=== PATIENT | female | born 1980 | race Caucasian/White ===

== ENCOUNTER 2023-09-11 05:59 | Day surgery (SDC) | payer OTHER ==
[~2023-09-11] VITALS: Ht 157.5 cm; Wt 74.1 kg
[~2023-09-11 05:59] MED LIST: CLARITIN10 M2 PO; FLUOXETINE HCL20 MG PO; NAPROSYN500 MG PO; OSTERA TABLET1 EACH PO; SINGULAIR10 MG PO; SPRINTEC1 EACH PO; SYNTHROID50 MCG PO; TURMERIC500 M3 PO; ZINC50 MG PO
[2023-09-11 06:17] VITALS: BP 135/83
[2023-09-11] MEDS ORDERED: RESTASIS1 DROP OD (06:19)
[2023-09-11] MEDS ORDERED: SUMATRIPTAN SUC50 MG PO (06:19)
[2023-09-11] MEDS ORDERED: MONO-LINYAH1 EACH PO (06:19)
[2023-09-11] MEDS ORDERED: ALPRAZOLAM1 MG PO (06:20)
[2023-09-11] MEDS ORDERED: IRON18 MG PO (06:23)
[2023-09-11] MEDS ORDERED: VITAMIN C100 MG PO (06:23)
[2023-09-11 07:28] LABS: BASOPHILS 0.6 % (0-2); EOSINOPHILS 1.5 % (0-6); HEMATOCRIT 34.5 % (35.0-50.0); HEMOGLOBIN 11.3 g/dL (12.0-18.0); LYMPHOCYTES 34.5 % (24-44); MCH 26.8 (27-36); MCHC 32.8 g/dl (30-36); MCV 81.9 fl (81-99); MONOCYTES 7.3 % (0-12); NEUTROPHILS 56.1 % (39-80); PLATELET COUNT 221 K/uL (140-440); RBC 4.21 M/ul (4.3-5.7); RDW 21.5 (10.5-15.0)
--- NOTE | 2023-09-11 07:52 | NUR ---
09/11/23 0752 DanielRadha PATIENT ARRIVES IN PACU WITH LINUS NESBITT, PERFORMING CHIN LIFT. JAW THRUST IS CONTINUED BY KENNY HENSLEY. PATIENT'S HEAD IS POSITIONED TO THE RIGHT AND HER AIRWAY IS ADEQUATE FOR EXCHANGE. PATIENT IS NOT RESPONSIVE. ORAL AIRWAY REMAINS IN PLACE.
--- NOTE | 2023-09-11 07:53 | NUR ---
MS REAL. PT GONE TO PROCEDURE. PROVIDED PRAYER.
[2023-09-11 08:11] VITALS: BP 107/64
--- NOTE | 2023-09-11 08:13 | NUR ---
LE 0810: PT IS BACK TO DS FROM PACU. SHE IS AWAKE AND BACK TO HER BASELINE. SO IS AT THE BEDSIDE. CALL LIGHT WITHIN REACH. WATER ON BEDSIDE TABLE. DC CRITERIA IS REVIEWED WITH PT AND SO. PT INDICATES THAT SHE FEELS LIKE SHE NEEDS TO VOID, SHE WOULD LIKE TO GET UP AND TRY.
--- NOTE | 2023-09-11 08:24 | NUR ---
LE 0815: PT IS HELPED UP OOB WITH STANDBY ASSIST. SHE DENIES NAUSEA OR DIZZINESS. SHE IS ABLE TO AMBULATE INDEPENDENTLY TO THE BATHROOM. WHERE SHE IS ABLE TO VOID 150MLS OF BLOOD TINGED URINE. LE 0820: PT IS HELPED BACK INTO BED. SHE IS TOLERATING SIPS OF WATER. SHE WOULD LIKE TO WAIT ON A SNACK.
[2023-09-11 09:14] VITALS: BP 128/79
--- NOTE | 2023-09-11 09:15 | NUR ---
LE 0910: PT IS DENYING PAIN. SHE IS TOLERATING WATER. SHE IS AGREEABLE TO APPLE SAUCE. LE 0915: PT AND SO ARE GIVEN VERBAL AND WRITTEN DC INSTRUCTIONS. THEY BOTH VERBALIZE UNDERSTANDING. NO QUESTIONS AT THIS TIME. PT TOLERATES APPLE SAUCE. PT INDICATES THAT SHE WOULD LIKE TO GO HOME. SHE IS EDUCATED ON HOW TO BEST DRESS HERSELF AND TO OPEN HER CURTAIN WHEN READY.
--- NOTE | 2023-09-11 09:37 | NUR ---
LE 0925: PT IS TAKEN TO PERSONAL VEHICLE VIA . SHE IS ABLE TO TRANSFER HERSELF FROM WHEELCHAIR TO TRUCK.
--- NOTE | 2023-09-11 15:48 | OR ---
[facility] [address] [place], [place] [address] Signed DATE OF OPERATION: 09/11/2023 SURGEON: Tressa Chester MD PREOPERATIVE DIAGNOSIS: Menorrhagia with regular cycle. POSTOPERATIVE DIAGNOSIS: Menorrhagia with regular cycle, submucous fibroid, single endometrial polyp. PROCEDURE: Hysteroscopy resection of polyp. ANESTHESIA: General LMA. ESTIMATED BLOOD LOSS: Minimal. DRAINS: None. INDICATIONS AND FINDINGS: The patient is a 43-year-old female, who has been having issues with menorrhagia with very heavy bleeding, which is not improved with control pills. At the time of surgery, her uterus sounded to 11 cm. There was a submucous fibroid at the fundus, which was not able to be resected. She had a single polyp in the lower segment. DESCRIPTION OF PROCEDURE: The patient was prepped and draped in the dorsal lithotomy position. A weighted speculum was placed. The anterior lip of the cervix was visualized and grasped with a single-tooth tenaculum. The uterus was sounded to 11 cm. The endocervical canal was then dilated to a #8 dilator. The MyoSure device was then introduced and the cavity evaluated. The MyoSure Lite was then introduced and the polyp was removed easily. D and C was also done to assure no remaining tissue. The fibroid was noted, but could not be resected due to its location. The procedure was then terminated with removal of the instruments from the vagina. There was no evidence of ongoing bleeding from the tenaculum site. The patient was taken to the recovery room in good condition. All sponge and needle counts were correct. Electronically Signed By: TRESSA CHESTER MD 09/11/23 1548 PATIENT NAME: LURDES DA SILVA OPERATIVE REPORT DATE OF : 76 REPORT #: [id number] PHYSICIAN: TRESSA CHESTER MD PCP: LEROY CARBAJAL MD REPORT IS CONFIDENTIAL AND NOT TO BE RELEASED WITHOUT AUTHORIZATION [address] [address] Signed Tressa Chester MD PJW/MODL /[id number] Copies: ~ Electronically Signed By: TRESSA CHESTER MD 09/11/23 1548 PATIENT NAME: LURDES DA SILVA OPERATIVE REPORT DATE OF : 76 REPORT #: [id number] PHYSICIAN: TRESSA CHESTER MD PCP: LEROY CARBAJAL MD REPORT IS CONFIDENTIAL AND NOT TO BE RELEASED WITHOUT AUTHORIZATION
--- NOTE | 2023-09-14 11:46 | PATH ---
[facility] [address] [place], [place] [address] Signed SPECIMEN(S): A ENDOMETRIAL CURETTINGS SPECIMEN SOURCE: A. ENDOMETRIAL CURETTINGS CLINICAL HISTORY: Menorrhagia. FINAL PATHOLOGIC DIAGNOSIS: Endometrial curettings: - Secretory endometrium, negative for hyperplasia or atypia. - Benign endometrial polyp. - Negative for hyperplasia or atypia. JVR:cecily MICROSCOPIC EXAMINATION: Histologic sections of all submitted blocks are examined by light microscopy. These findings, together with the gross examination, support the pathologic diagnosis. GROSS DESCRIPTION: The specimen, labeled and designated "Swilling, endometrial curettings," is received in formalin and consists of multiple fragments of red-brown soft tissue (2.7 x 2.0 x 0.4 cm in aggregate). The specimen is submitted entirely in cassette (A1). VB (under the direct supervision of a pathologist) The Gross Description was prepared using a voice recognition system. The report was reviewed for accuracy; however, sound-alike word errors, addition and/or deletions may occur. If there is any question about this report, please contact Client Services. PERFORMING LABORATORY: Technical component was performed by [facility], [address] [place] [id number] (CLIA# [id number]). Professional interpretation was performed by [facility], [address] [place] [phone] (CLIA#: [id number]). Diagnostician: Sam Valdes MD Pathologist Electronically Signed 09/14/2023 PATIENT NAME: LURDES DA SILVA PATHOLOGY DATE OF : [birth year] REPORT #: [id number] PHYSICIAN: [facility] PCP: LEROY CARBAJAL MD REPORT IS CONFIDENTIAL AND NOT TO BE RELEASED WITHOUT AUTHORIZATION [address] [address] Signed Copies: ~ PATIENT NAME: LURDES DA SILVA PATHOLOGY DATE OF : [birth year] REPORT #: [id number] PHYSICIAN: [facility] PCP: LEROY CARBAJAL MD REPORT IS CONFIDENTIAL AND NOT TO BE RELEASED WITHOUT AUTHORIZATION
== END 2023-09-11 09:25 | disposition home or self-care (01) ==
LOC: OPS 05:59 → DS 05:59 → OPS 07:15 → DS 07:15 → OPS 09:25
PROVIDERS: ATTEND Obstetrics & Gynecology
PROC: 0UB98ZZ Excision of Uterus, Via Natural or Artificial Opening Endoscopic (ICD-10-PCS; principal; 2023-09-11 07:15)
DX: N84.0 Polyp of corpus uteri (principal); N92.0 Excessive and frequent menstruation with regular cycle; D25.0 Submucous leiomyoma of uterus; E03.9 Hypothyroidism, unspecified; Z79.899 Other long term (current) drug therapy
CPT/HCPCS: 00952; 36415; 84703; 85025; J1100; J1885; J2250; J2405; J2704; J2765; J3010; J7121

== ENCOUNTER 2023-10-11 05:52 | Day surgery (SDC) | payer OTHER ==
[2023-09-25 15:32] VITALS: BP 145/88
[~2023-10-11] VITALS: Ht 157.5 cm; Wt 77.3 kg
[~2023-10-11 05:52] MED LIST changes: +ALPRAZOLAM1 MG PO; +FLONASE ALLERG9.9 ML NAS; +GINGER500 MG PO; +IRON18 MG PO; +IRON325 M1 PO; +LACTATED RINGER'S 1,000 ML IV SCH; +MONO-LINYAH1 EACH PO; +PHOS MISC; +RESTASIS1 DROP OD; +SUMATRIPTAN SUC50 MG PO; +VITAMIN B-150 MG PO; +VITAMIN C100 MG PO; +VITAMIN D3250 MCG PO; +[UNRECOGNIZED DRUG - OTHER] MISC
[2023-10-11 06:13] VITALS: BP 147/91
[2023-10-11] MEDS ORDERED: fentaNYL citrate 100 MCG/2 ML VIAL ONE (06:59)
[2023-10-11] MEDS ORDERED: KETAMINE in NS 50 MG/5 ML SYR ONE (06:59)
[2023-10-11] MEDS ORDERED: ROCURONIUM BROMIDE 50 MG/5 ML SYR ONE ×2 (07:00→08:10)
[2023-10-11] MEDS ORDERED: ACETAMINOPHEN 1,000 MG/100 ML VIAL ONE (07:00)
[2023-10-11] MEDS ORDERED: CEFAZOLIN SODIUM 2 GM/20 ML SYR IV SCH (07:00)
[2023-10-11] MEDS ORDERED: FAMOTIDINE 20 MG/ 2 ML VIAL IV SCH (07:00)
[2023-10-11] MEDS ORDERED: SODIUM CHLORIDE 0.9% 40 ML IV ONE ×2 (07:00→08:11)
[2023-10-11] MEDS ORDERED: LIDOCAINE HCL 2% 5 ML SDV ONE ×2 (07:00→08:11)
[2023-10-11] MEDS ORDERED: KETOROLAC TROMETHAMINE 30 MG/ML VIAL ONE (07:00)
[2023-10-11] MEDS ORDERED: LIDOCAINE HCL 1% 5 ML SDV INJ ONE (07:00)
[2023-10-11] MEDS ORDERED: propofoL 200 MG/20 ML VIAL ONE (07:00)
[2023-10-11] MEDS ORDERED: METOCLOPRAMIDE HCL 10 MG/2 ML SDV IV SCH (07:00)
[2023-10-11] MEDS ORDERED: dexmedeTOMIDine HCl 200 MCG/2 ML VIAL ONE (07:00)
[2023-10-11] MEDS ORDERED: IBLOOD GLUCOSE TEST STRIP 1 EA TEST VI PRN ×2 (07:00→08:45)
[2023-10-11] MEDS ORDERED: MAGNESIUM SULFATE 1 GM/2 ML VIAL ONE ×2 (07:00→08:11)
[2023-10-11] MEDS ORDERED: HEParin SOD (PORCINE) 5,000 UNIT/0.5 ML SYR SUB-Q SCH ×2 (07:00→21:00)
[2023-10-11] MEDS ORDERED: ondansetron HCL 4 MG/2 ML VIAL ONE (07:00)
[2023-10-11] MEDS ORDERED: DEXAMETHASONE SOD PHOS 4 MG/ML VIAL ONE (07:00)
[2023-10-11] MEDS ORDERED: droPERidol 5 MG/2 ML VIAL IV PRN (08:45)
[2023-10-11] MEDS ORDERED: ondansetron HCL 4 MG/2 ML VIAL IV PRN ×2 (08:45→09:15)
[2023-10-11] MEDS ORDERED: NALOXONE HCL 0.4 MG SYR IV PRN (08:45)
[2023-10-11] MEDS ORDERED: fentaNYL citrate 100 MCG/2 ML VIAL IV PRN (08:45)
[2023-10-11] MEDS ORDERED: HYDROmorphone HCL 1 MG/ML SYR IV PRN (08:45)
[2023-10-11] MEDS ORDERED: FLUORESCEIN SODIUM 500 MG/5 ML ML ONE (08:53)
[2023-10-11] MEDS ORDERED: SUGAMMADEX SODIUM 200 MG/2 ML ML ONE (09:00)
[2023-10-11] MEDS ORDERED: METOCLOPRAMIDE HCL 10 MG/2 ML SDV IV PRN (09:15)
[2023-10-11] MEDS ORDERED: LIDOCAINE 2% VISCOUS 6 ML SYR TOP ONE (09:15)
[2023-10-11] MEDS ORDERED: MAGNESIUM HYDROXIDE/AL HYDROX 30 ML CUP PO PRN (09:15)
[2023-10-11] MEDS ORDERED: ondansetron HCL 4 MG TAB PO PRN (09:15)
[2023-10-11] MEDS ORDERED: PROCHLORPERAZINE EDISYLATE 10 MG/2 ML VIAL IV PRN (09:15)
[2023-10-11] MEDS ORDERED: LACTATED RINGER'S 1,000 ML IV SCH (09:15)
[2023-10-11] MEDS ORDERED: FAMOTIDINE 20 MG TAB PO PRN (09:15)
[2023-10-11 10:16] VITALS: BP 129/78
[2023-10-11] MEDS ORDERED: OXYCODONE HCL 5 MG TAB PO PRN (10:45)
[2023-10-11 11:09] VITALS: BP 138/88
[2023-10-11] MEDS ORDERED: ACETAMINOPHEN 500 MG TAB PO SCH (14:00)
[2023-10-11] MEDS ORDERED: IBUPROFEN 800 MG TAB PO SCH (18:00)
--- NOTE | 2023-10-13 13:49 | PATH ---
[facility] [address] [place], [place] [address] Signed SPECIMEN(S): A UTERUS, CERVIX, BILATERAL TUBES SPECIMEN(S): B RIGHT PELVIC SIDEWALL ENDOMETRIOSIS SPECIMEN(S): C CUL-DE-SAC ENDOMETRIOSIS SPECIMEN SOURCE: A. UTERUS, CERVIX, BILATERAL TUBES B. RIGHT PELVIC SIDEWALL ENDOMETRIOSIS C. CUL-DE-SAC ENDOMETRIOSIS CLINICAL HISTORY: Menorrhagia with regular cycle. Submucosal fibroids. FINAL PATHOLOGIC DIAGNOSIS: A. Uterus, cervix, bilateral tubes: - Atrophic endometrium, negative for hyperplasia or atypia. - Benign myometrial leiomyomas. - Benign endo- and ectocervix. - Benign bilateral oviducts. B. Right pelvic sidewall, endometriosis: - Benign soft tissue with features consistent with endometriosis. C. Cul-de-sac, endometriosis: - Endometriosis, benign. JVR:llc MICROSCOPIC EXAMINATION: Histologic sections of all submitted blocks are examined by light microscopy. These findings, together with the gross examination, support the pathologic diagnosis. GROSS DESCRIPTION: A. The specimen, labeled and designated "[place]imcoing, uterus, cervix, bilateral fallopian tubes," is received in formalin and consists of unoriented uterus and cervix with and undesignated fallopian tubes. The uterus cannot be grossly oriented. The uterus measures 5.0 cm from cornu to cornu, 5.0 cm anterior to posterior and 6.8 cm from cervix to fundus. The serosal surface is pink-jameson, smooth. The uterus weighs 109 grams. The ectocervix is pink-jameson, smooth and measures 3.5 x 3.5 cm. Sectioning through the cervix reveals pink-jameson homogenous tissue. Endometrial cavity is disfigured with subendometrial nodule and measures 2.7 x 0.7 cm. It is lined with pink-jameson, smooth endometrium. Sectioning through myometrium reveals two PATIENT NAME: LURDES DA SILVA PATHOLOGY DATE OF : 76 REPORT #: [id number] PHYSICIAN: [facility] PCP: LEROY CARBAJAL MD REPORT IS CONFIDENTIAL AND NOT TO BE RELEASED WITHOUT AUTHORIZATION [facility] [address] [place], [place] [address] Signed white, firm, well-defined nodules that measure 2.0 and 2.5 cm in greatest dimension. Both nodules are subendometrial. Sectioning through the nodule reveals a white, firm, whorled surface with signs of hemorrhage. The myometrium measures 2.0 cm in thickness. The endometrium measures less than 0.1 cm in thickness. Both fallopian tubes show fimbria and violaceous and smooth serosa. The first fallopian tube measures 2.5 cm in length and 0.6 cm in diameter. The second fallopian tube measures 3.8 cm in length and 0.6 cm in diameter. Sectioning through both fallopian tubes is grossly unremarkable. Cassette Summary: (A1) cervix, desk representative sections (A2) endomyometrium, desk representative sections (A3-A4) two subendometrial nodules, desk representative sections (A5) first fallopian tube, desk representative sections (A6) second fallopian tube, desk representative sections B. The specimen, labeled and designated "Pipe, right pelvic sidewall endometriosis," is received in formalin and consists of pink-jameson, soft, focally congested tissue fragment that measures 0.8 x 0.7 x 0.3 cm. Specimen is bisected and entirely submitted in (B1). C. The specimen, labeled and designated "Swilling, cul-de-sac endometriosis," is received in formalin and consists of pink-jameson, focally congested, soft tissue fragment that measures 0.6 x 0.5 x 0.2 cm. Specimen is bisected and entirely submitted in (C1). JS (under the direct supervision of a pathologist) The Gross Description was prepared using a voice recognition system. The report was reviewed for accuracy; however, sound-alike word errors, addition and/or deletions may occur. If there is any question about this report, please contact Client Services. PERFORMING LABORATORY: Technical component was performed by [facility], [address] [place] [id number] (CLIA# [id number]). Professional interpretation was performed by [facility], [address] [place] [id number] (CLIA#: [id number]). Diagnostician: Sam Valdes MD Pathologist Electronically Signed 10/13/2023 PATIENT NAME: LURDES DA SILVA PATHOLOGY DATE OF : [birth year] REPORT #: [id number] PHYSICIAN: [facility] PCP: LEROY CARBAJAL MD REPORT IS CONFIDENTIAL AND NOT TO BE RELEASED WITHOUT AUTHORIZATION [facility] [address] [place] [address] Signed Copies: ~ PATIENT NAME: NIMCOJEANNIELURDES PATHOLOGY DATE OF : 76 REPORT #: [id number] PHYSICIAN: [facility] PCP: LEROY CARBAJAL MD REPORT IS CONFIDENTIAL AND NOT TO BE RELEASED WITHOUT AUTHORIZATION
--- NOTE | 2023-10-14 14:31 | OR ---
[facility] [address] [place], [place] [address] Signed DATE OF OPERATION: 10/11/2023 SURGEON: Tressa Chester MD PERSONAL LINES ADVISOR: LATOYA Salazar DO PREOPERATIVE DIAGNOSES: Menorrhagia, submucosal fibroids. POSTOPERATIVE DIAGNOSES: Menorrhagia, submucosal fibroids with pelvic endometriosis. PROCEDURES: Total laparoscopic hysterectomy, bilateral salpingectomy, excision and fulguration of endometriosis. ANESTHESIA: General ET. ESTIMATED BLOOD LOSS: 25 mL. DRAINS: Lucas catheter. INDICATIONS AND FINDINGS: The patient is a 43-year-old female who has been having heavier periods despite use of oral contraceptives. Hysteroscopy confirmed a submucosal fibroid. She desired definitive treatment. At the time of surgery, exam under anesthesia revealed a top-normal size uterus with a small fibroid posteriorly at the time of surgery itself. These findings were confirmed and endometriosis was seen in posterior cul de sac, the left anterior cul de sac and the right posterior ovarian fossa. There was a small area over the sigmoid which was superficial PROCEDURE IN DETAIL: The patient was prepped and draped in the dorsal lithotomy position. A weighted speculum was placed. The anterior lip of the cervix was visualized and grasped with a single-tooth tenaculum. The cavity was sounded to 12 cm. The endocervical canal was then dilated slightly and the VCare cannula placed and the balloon inflated at the Electronically Signed By: TRESSA CHESTER MD 10/14/23 1431 PATIENT NAME: LURDES DA SILVA OPERATIVE REPORT DATE OF : 76 REPORT #: [id number] PHYSICIAN: TRESSA CHESTER MD PCP: LEROY CARBAJAL MD REPORT IS CONFIDENTIAL AND NOT TO BE RELEASED WITHOUT AUTHORIZATION [facility] [address] [place], [place] [address] Signed fundus. The tenaculum and speculum removed and the cup was fitted over the cervix and a locking cap fitted into place. Attention was then directed above. The infraumbilical area was injected with 0.5% Marcaine plain. An incision was made with a knife, and each layer was serially elevated and incised until the fascia was opened and identified. Stay sutures of 0 Vicryl were placed. The peritoneum was opened bluntly and the Suni cannula placed and the balloon inflated. Placement of the scope confirmed proper positioning. CO2 was then introduced into the abdomen. When the abdomen was appropriately distended, the secondary ports were placed. These were placed laterally and slightly below the level of the umbilicus. Each of these areas was transilluminated, injected with the Marcaine, incision made with a knife and the trocars placed under direct vision. Left-sided port was a 5 mm port. The right-sided was the Veress needle with the expanding port. Following this, the Ligasure [place] device was then used to excise the tubes. The mesosalpinx was serially coagulated and divided and the tube divided at the cornu and the specimen retrieved. This was done bilaterally. The utero-ovarian pedicles were then serially coagulated and divided as was the round ligament on the patient's left side. This allowed for development of the bladder flap anteriorly as well as taking the peritoneum down posteriorly. The uterine vessels were skeletonized and were coagulated multiple times and divided. Further dissection was done both posteriorly and anteriorly. Attention was then directed to the patient's right side. The utero-ovarian ligament was coagulated and divided as was the round ligament. The peritoneum incised anteriorly completing the bladder flap. Peritoneum was taken down posteriorly as well. Uterine vessels were coagulated and divided multiple times. Further dissection was done both posteriorly and anteriorly and at this point, it was felt that the specimen could be removed. The Sonicision device was used to separate the specimen from the vaginal cuff. This was begun posteriorly at the right uterosacral ligament and carried around anteriorly and then begun again posteriorly and wrapped around to complete the removal. The specimen was retrieved vaginally. The vaginal canal was packed with a glove with a wet lap. The pneumoperitoneum was then reaccumulated and the cuff evaluated. There was some bleeding on the posterior cuff controlled with LigaSure device. The cuff was closed with the Endo Stitch. This was begun at the patient's right uterosacral ligament taking care to incorporate the vaginal mucosa both posteriorly and anteriorly and run to the patient's left uterosacral ligament and back to the center. The abdomen was irrigated and good hemostasis was noted. The endometriosis in the right posterior ovarian fossa was above the ureter. This was grasped and undermined sharply and excised. The area in the posterior cul-de-sac was excised in the same manner. The area over the sigmoid was unroofed but no further dissection was done in an effort to avoid complications. The area in the anterior left cul-de-sac was treated with cautery. Following this, the abdomen was irrigated again and inspected and good hemostasis was noted. Tisseel was sprayed over the cuff and the areas of dissection to further aid in hemostasis. The instruments removed from the abdomen after allowing as much CO2 as possible to escape. The fascial incision at the umbilicus was re-identified and closed with a running suture Electronically Signed By: TRESSA CHESTER MD 10/14/23 5212 PATIENT NAME: LURDES DA SILVA OPERATIVE REPORT DATE OF : 76 REPORT #: [id number] PHYSICIAN: TRESSA CHESTER MD PCP: LEROY CARBAJAL MD REPORT IS CONFIDENTIAL AND NOT TO BE RELEASED WITHOUT AUTHORIZATION [facility] [address] [place] [address] Signed of 0 Vicryl. The skin incisions were closed with subcuticular sutures of 3-0 Vicryl Rapide. Attention was directed below and the vaginal pack removed. Cystoscopy was done. The Lucas catheter removed and the 30 degree scope placed. She did receive IV fluorescein. There was no evidence of injury to the bladder. Both ureteral orifices were easily identified and free spill of urine was noted from each side though no fluorescein was present as yet. The bladder was drained and the Lucas replaced. The procedure was terminated. All sponge and needle counts were correct and she was taken to the recovery room in good condition. MD RASHAUN Talamantes/MODL /[id number] Copies: ~ Electronically Signed By: TRESSA CHESTER MD 10/14/23 1431 PATIENT NAME: LURDES DA SILVA OPERATIVE REPORT DATE OF : 76 REPORT #: [id number] PHYSICIAN: TRESSA CHESTER MD PCP: LEROY CARBAJAL MD REPORT IS CONFIDENTIAL AND NOT TO BE RELEASED WITHOUT AUTHORIZATION
== END 2023-10-11 11:50 | disposition home or self-care (01) ==
LOC: DS 05:52 → OPS 05:52 → DS 11:00 → OPS 11:50
PROVIDERS: ATTEND Obstetrics & Gynecology
PROC: 0U594ZZ Destruction of Uterus, Percutaneous Endoscopic Approach (ICD-10-PCS; 2023-10-11)
PROC: 0UT94ZZ Resection of Uterus, Percutaneous Endoscopic Approach (ICD-10-PCS; principal; 2023-10-11 11:00)
PROC: 0UT74ZZ Resection of Bilateral Fallopian Tubes, Percutaneous Endoscopic Approach (ICD-10-PCS; 2023-10-11 11:00)
DX: D25.0 Submucous leiomyoma of uterus (principal); N80.00 Endometriosis of the uterus, unspecified
CPT/HCPCS: 00952; A9270; J0131; J0690; J1100; J1644; J1885; J2001; J2405; J2704; J2765; J3010; J3475; J3490; J7121